=== PATIENT | male | born 1945 | race Hispanic/Latino ===

== ENCOUNTER 2023-05-06 09:21 | Emergency (ER) | payer OTHER, MEDICARE ==
[~2023-05-06] VITALS: Ht 165.1 cm; Wt 83.9 kg
[2023-05-06] MEDS ORDERED: DEXTROSE 50%-WATER 50 ML DISP.SYRIN IV ONE ×2 (09:22→09:28)
[2023-05-06] MEDS ORDERED: NALOXONE HCL 0.4 MG/1 ML ML IVP ONE (09:22)
[2023-05-06] MEDS ORDERED: EPINEPHRINE 1MG/10ML(1:10,000) 0.1 MG/ML SYG IVP ONE (09:22)
[2023-05-06] MEDS ORDERED: CACL 1GM SYG IVP ONE (09:22)
[2023-05-06] MEDS ORDERED: NOREPINEPHRINE BITARTRATE 1 MG/1 ML ML IV ONE (09:22)
[2023-05-06 09:23] VITALS: BP 0/0; PULSE 0; RESP 0
== END 2023-05-06 12:29 ==
LOC: EDH 09:21
DX: I46.9 Cardiac arrest, cause unspecified (principal)
CPT/HCPCS: 99285; 82948 ×2; 92950; 31500; 94770; J2310; J3490 ×2; J7070 ×2; J0171